=== PATIENT | female | born 1995 | race Caucasian/White ===

== ENCOUNTER 2018-07-19 13:02 | Inpatient (IN) | payer OTHER, MEDICAID ==
[2018-07-19] MEDS ORDERED: CARBOPROST 250 MCG INJ IM (17:00)
[2018-07-19] MEDS ORDERED: OXYTOCIN 30 UNITS/LR 500 ML IV ×2 (17:00)
[2018-07-19] MEDS ORDERED: MISOPROSTOL 200 MCG TAB PR (17:00)
[2018-07-19] MEDS ORDERED: METHYLERGONOVINE 0.2 MG INJ IM (17:00)
[2018-07-19] MEDS ORDERED: LIDOCAINE 1% (MPF) 30 ML INJ INJ (17:00)
[2018-07-19] MEDS: LACTATED RINGER'S 1,000 ML IV ×2 (17:25→23:32)
[2018-07-19 17:36] LABS: ADD MAN DIFF? NO
[2018-07-19 17:51] LABS: INR 0.88; PARTIAL THROMBOPLASTIN TIME 22.4 Sec (23.0-35.0); PT RATIO 0.9
[2018-07-19 18:18] LABS: HEPATITIS B SURFACE ANTIGEN NEGATIVE (NEGATIVE)
[2018-07-19 18:32] LABS: BASOPHILS % 0.4 % (0.0-2.0); EOSINOPHILS # 0.1 10^3/ul (0.0-0.5); EOSINOPHILS % 0.8 % (0.0-7.0); HEMOGLOBIN 13.2 g/dl (12.0-16.0); LYMPHOCYTES % 24.2 % (15.0-51.0); MEAN CORPUSCULAR HEMOGLOBIN 30.3 pg (29.0-33.0); MEAN PLATELET VOLUME 10.8 fl (7.4-10.4); MONOCYTE # 0.8 10^3/ul (0.3-0.9); MONOCYTES % 9.8 % (0.0-11.0); NEUTROPHIL # 5.3 10^3/ul (1.6-7.5); NEUTROPHILS % 64.4 % (39.0-77.0); PLATELET COUNT 182 10^3/UL (140-415); RED BLOOD COUNT 4.35 10^6/ul (4.20-5.40); RED CELL DISTRIBUTION WIDTH 13.3 % (11.5-14.5)
[2018-07-19 18:32] LABS: WHITE BLOOD COUNT 8.3 10^3/ul (4.8-10.8)
[2018-07-19 21:38] LABS: RAPID PLASMA REAGIN NONREACTIVE (NR)
[2018-07-20] MEDS: MISOPROSTOL 50 MCG CAPSULE PO ×5 (05:52→21:00)
[2018-07-20] MEDS: LACTATED RINGER'S 1,000 ML IV ×3 (07:11→21:22)
[2018-07-20] MEDS ORDERED: MISOPROSTOL 50 MCG CAPSULE PO ×2 (09:00)
[2018-07-20] MEDS: OXYTOCIN 30 UNITS/LR 500 ML IV (19:46)
[2018-07-20] MEDS: BUTORPHANOL 2 MG INJ IV (21:29)
[2018-07-21] MEDS ORDERED: FENTAnyl 2MCG/ML-ROPIV 0.2% 100 ML (00:57)
[2018-07-21] MEDS ORDERED: DIPHENHYDRAMINE 50 MG INJ IV (01:00)
[2018-07-21] MEDS: MISOPROSTOL 50 MCG CAPSULE PO (01:00)
[2018-07-21] MEDS ORDERED: NALOXONE (0.4 MG/ML) INJ IV (01:00)
[2018-07-21] MEDS: LACTATED RINGER'S 1,000 ML IV (02:21)
[2018-07-21] MEDS: FENTAnyl 2MCG/ML-ROPIV 0.2% 100 ML BAG EPI (02:23)
[2018-07-21] MEDS ORDERED: MINERAL OIL LIGHT 10 ML VIAL TOP (06:30)
[2018-07-21] MEDS: ONDANSETRON 4 MG INJ IV (06:56)
[2018-07-21] MEDS ORDERED: MAGNESIUM HYDROXIDE 30ML CUP PO (08:00)
[2018-07-21] MEDS ORDERED: OXYTOCIN 30 UNITS/LR 500 ML IV (08:00)
[2018-07-21] MEDS ORDERED: ONDANSETRON 4 MG INJ IV (08:00)
[2018-07-21] MEDS ORDERED: METHYLERGONOVINE 0.2 MG INJ IM (08:00)
[2018-07-21] MEDS ORDERED: SENNA/DOCUSATE NA (8.6MG/50MG) TAB PO (08:00)
[2018-07-21] MEDS ORDERED: MISOPROSTOL 200 MCG TAB PR (08:00)
[2018-07-21] MEDS ORDERED: CARBOPROST 250 MCG INJ IM (08:00)
[2018-07-21] MEDS: LACTATED RINGER'S 1,000 ML IV* ×3 (08:00→23:52)
[2018-07-21] MEDS ORDERED: DIBUCAINE 1% 30 GM OINT TOP (08:00)
[2018-07-21] MEDS: OXYTOCIN 30 UNITS/LR 500 ML IV ×2 (08:18→11:40)
[2018-07-21] MEDS: IBUPROFEN 600 MG TAB PO ×3 (11:39→23:58)
[2018-07-21] MEDS: BENZOCAINE 20% 56 ML SPRAY TOP (11:39)
[2018-07-21] MEDS: LANOLIN HPA 1 PKT TOP (11:39)
[2018-07-21] MEDS: WITCH HAZEL/GLYCERIN PAD PR (16:48)
[2018-07-21] MEDS: ACETAMINOPHEN 325 MG TAB PO ×2 (16:49→22:46)
[2018-07-21] MEDS: DOCUSATE SODIUM 100 MG CAP PO (21:56)
[2018-07-22] MEDS: LACTATED RINGER'S 1,000 ML IV* ×2 (06:05→16:00)
[2018-07-22] MEDS: IBUPROFEN 600 MG TAB PO ×2 (06:06→13:39)
[2018-07-22 07:41] LABS: ADD MAN DIFF? NO
[2018-07-22 07:50] LABS: BASOPHILS % 0.4 % (0.0-2.0); EOSINOPHILS # 0.1 10^3/ul (0.0-0.5); EOSINOPHILS % 1.1 % (0.0-7.0); HEMATOCRIT 32.3 % (37.0-47.0); HEMOGLOBIN 10.6 g/dl (12.0-16.0); LYMPHOCYTES # 2.1 10^3/ul (0.8-2.9); LYMPHOCYTES % 20.4 % (15.0-51.0); MEAN CORPUSCULAR HEMOGLOBIN 30.8 pg (29.0-33.0); MEAN CORPUSCULAR HGB CONC 32.8 g/dl (32.0-37.0); MEAN CORPUSCULAR VOLUME 93.9 fl (82.0-101.0); MONOCYTE # 0.8 10^3/ul (0.3-0.9); MONOCYTES % 7.4 % (0.0-11.0); NEUTROPHIL # 7.4 10^3/ul (1.6-7.5); NEUTROPHILS % 70.3 % (39.0-77.0); PLATELET COUNT 150 10^3/UL (140-415); RED BLOOD COUNT 3.44 10^6/ul (4.20-5.40); RED CELL DISTRIBUTION WIDTH 13.7 % (11.5-14.5)
[2018-07-22 07:50] LABS: WHITE BLOOD COUNT 10.5 10^3/ul (4.8-10.8)
[2018-07-22] MEDS: DOCUSATE SODIUM 100 MG CAP PO ×2 (09:25→21:52)
[2018-07-22] MEDS: BISACODYL 10 MG SUPP PR (13:40)
[2018-07-22] MEDS: MAGNESIUM HYDROXIDE 30ML CUP PO (13:40)
[2018-07-22 20:22] LABS: RHOGAM PROFILE 1 1
[2018-07-23] MEDS: IBUPROFEN 600 MG TAB PO (04:32)
[2018-07-23] MEDS: LACTATED RINGER'S 1,000 ML IV* ×2 (05:34)
[2018-07-23] MEDS: DOCUSATE SODIUM 100 MG CAP PO (09:00)
[2018-07-23] MEDS: MEASLES,MUMPS,RUBELLA VACCINE INJ SC* (14:49)
== END 2018-07-23 16:30 | disposition home or self-care (01) | DRG 807 ==
LOC: OBT 13:02 → PP1 07-21 10:06 → L-D 13:02 → OBT 15:15 → L-D 15:15
PROVIDERS: Obstetrics & Gynecology
PROC: 10E0XZZ Delivery of Products of Conception, External Approach (ICD-10-PCS; principal; 2018-07-21)
PROC: 0W8NXZZ Division of Female Perineum, External Approach (ICD-10-PCS; 2018-07-21)
DX: O48.0 Post-term pregnancy (principal); Z37.0 Single live birth; Z3A.40 40 weeks gestation of pregnancy
CPT/HCPCS: 62322; 76815; 76818; 85025; 85610; 85730; 86592; 86850; 86870; 86885; 86900; 86901; 87340

== ENCOUNTER 2018-08-20 21:03 | Emergency (ER) | payer OTHER ==
[2018-08-21 01:18] LABS: ADD UMIC YES; UR ASCORBIC ACID NEGATIVE (NEGATIVE); UR BILIRUBIN (Dip) NEGATIVE (NEGATIVE); UR BLOOD (Dip) 1+ mg/dL (NEGATIVE); UR BUDDING YEAST FEW /HPF (NONE SEEN); UR CLARITY SLIGHTLY CLOUDY (CLEAR); UR COLOR YELLOW (YELLOW); UR GLUCOSE (Dip) NEGATIVE (NEGATIVE); UR KETONES (Dip) TRACE mg/dL (NEGATIVE); UR LEUKOCYTE ESTERASE (Dip) 3+ Leu/ul (NEGATIVE); UR MUCUS FEW /HPF (NONE SEEN); UR NITRITE (Dip) NEGATIVE (NEGATIVE); UR RBC 10 /HPF (0-5); UR SPECIFIC GRAVITY (Dip) 1.024 (1.003-1.030); UR SQUAMOUS EPITHELIAL CELL FEW /HPF (FEW); UR TOTAL PROTEIN (Dip) NEGATIVE (NEGATIVE); UR UROBILINOGEN (Dip) NEGATIVE (NEGATIVE); UR WBC 32 /HPF (0-5)
[2018-08-21] MEDS: ACETAMINOPHEN 325 MG TAB PO (02:05)
[2018-08-21] MEDS: CEPHALEXIN 500 MG CAP PO (02:06)
== END 2018-08-21 02:08 | disposition home or self-care (01) ==
LOC: FTE 08-21 02:08
DX: N39.0 Urinary tract infection, site not specified (principal)
CPT/HCPCS: 81001; 81025; 87086; 99283